=== PATIENT | male | born 1985 | race Two or more races ===

== ENCOUNTER 2023-09-15 18:36 | Emergency (ER) | payer BC ==
[~2023-09-15] VITALS: Ht 167.6 cm; Wt 115.1 kg
[2023-09-15 19:09] LABS: Urine Bacteria NONE SEEN /hpf (None Seen); Urine Blood 3+ /uL (Negative); Urine Clarity CLOUDY (Clear); Urine Color Red (Yellow); Urine Mucus FEW (None Seen); Urine Protein, UAD 2+ (Negative); Urine Specific Gravity 1.023 (1.001-1.035); Urine Urobilinogen Normal (Negative); Urine WBC 540 /hpf (0 - 3); Urine pH 5.5 (5.0-8.0)
[2023-09-15] MEDS ORDERED: ACE3T PO (20:26)
[2023-09-15] MEDS ORDERED: LEVO750T8 PO (20:26)
[2023-09-15] MEDS: levoFLOXacin 250 MG TAB PO ONE (21:00)
[2023-09-15 21:02] VITALS: BP 137/95; PULSE 79; RESP 18; TEMP 99.3; O2SAT 94
[2023-09-15] MEDS: ACETAMINOPHEN/CODEINE#3 (300/30mg) TAB PO ONE (21:02)
== END 2023-09-15 21:03 | disposition home or self-care (01) ==
LOC: ER 18:36
DX: N39.0 Urinary tract infection, site not specified (principal); E66.01 Morbid (severe) obesity due to excess calories; Z68.41 Body mass index [BMI] 40.0-44.9, adult
CPT/HCPCS: 81001